=== PATIENT | female | born 1965 | race Two or more races ===

== ENCOUNTER 2017-11-21 12:26 | Emergency (ER) | payer BC ==
[~2017-11-21] VITALS: Ht 160 cm; Wt 63.5 kg
--- NOTE | 2017-11-21 12:51 | NUR ---
MSE COMPLETED, PT D/'D HOME, ACI/RX X2 GIVEN. PT AMBULATED W/O DIFF/TOOK ALL BELONGINGS.
[2017-11-21 12:53] VITALS: BP 110/66
== END 2017-11-21 12:56 | disposition home or self-care (01) ==
LOC: ER 12:32
DX: B02.9 Zoster without complications (principal)
CPT/HCPCS: A4663